=== PATIENT | female | born 1955 | race African-American/Black ===

== ENCOUNTER 2017-07-26 17:38 | Emergency (ER) | payer MEDICARE, MEDICAID ==
[~2017-07-26] VITALS: Ht 152.4 cm; Wt 78.0 kg
[2017-07-26 18:23] VITALS: BP 146/84
== END 2017-07-27 01:46 | disposition left against medical advice (07) ==
LOC: ER 17:38
DX: R42 Dizziness and giddiness (principal); Z53.21 Procedure and treatment not carried out due to patient leaving prior to being seen by health care provider
CPT/HCPCS: 93005

== ENCOUNTER 2022-02-07 07:06 | Day surgery (SDC) | payer OTHER, MEDICAID ==
[~2022-02-07] VITALS: Ht 152.4 cm; Wt 90.3 kg
[~2022-02-07 07:06] MED LIST: ASPI-498 OR; BIOFTAB PO; CHOL50007 PO; CLOT1CRE13 TOP; CYAN5000 SL; DONE5TAB80 PO; FAMO-12 PO; GABA400C11 PO; IPRA0.00 IN; LIRA18IN2 SUBCUT; LOSA-39 PO; METF500S PO; NITR0.4S29 SL; ROSU20TA14 PO; TRAM50TA2 PO; UMEC1INH IN
[2022-02-07] MEDS ORDERED: LIDOCAINE 2%HCL (LOCAL ANESTH.) INJ 20ML MDV ONE (09:36)
[2022-02-07] MEDS ORDERED: ANGIOMAX 250 MG VIAL IV ONE (09:37)
[2022-02-07] MEDS ORDERED: VERAPAMIL 2.5MG/ML INJ 2ML VIAL IV ONE (09:38)
[2022-02-07] MEDS ORDERED: SODIUM CHL 0.9% 0 ML ONE (09:38)
[2022-02-07] MEDS ORDERED: MIDAZOLAM HCL 2MG/2ML 2ml VIAL (1mg/ml) ONE (09:38)
[2022-02-07] MEDS ORDERED: HEPARIN SODIUM (PORCINE) 5000 UNITS/ML 1ML VIAL ONE (09:38)
[2022-02-07] MEDS ORDERED: fentaNYL CITRATE 100 MCG/2 ML VL ONE (09:38)
== END 2022-02-07 13:18 | disposition home or self-care (01) ==
LOC: CATH 07:06
PROVIDERS: ATTEND Internal Medicine Cardiovascular Disease
DX: R07.9 Chest pain, unspecified (principal); I25.10 Atherosclerotic heart disease of native coronary artery without angina pectoris; I11.0 Hypertensive heart disease with heart failure; I50.9 Heart failure, unspecified; E78.5 Hyperlipidemia, unspecified; E11.9 Type 2 diabetes mellitus without complications; J44.9 Chronic obstructive pulmonary disease, unspecified; E66.01 Morbid (severe) obesity due to excess calories; Z86.73 Personal history of transient ischemic attack (TIA), and cerebral infarction without residual deficits; Z68.38 Body mass index [BMI] 38.0-38.9, adult; Z20.822 Contact with and (suspected) exposure to COVID-19
CPT/HCPCS: 93458; C1769; C1887; C1894; J1644; J2250; J3010; J7030; U0003; 99152; 99153